=== PATIENT | female | born 1935 | race Caucasian/White ===

== ENCOUNTER 2019-06-03 | Emergency (ER) | payer MEDICARE, BC ==
[~2019-06-03] MED LIST: ANTIVERT12.5 MG PO; CADUET5 MG/40 MG PO; CELEBREX200 MG OR; CELEBREX200 MG PO; CIPROFLOXACN500 MG PO; ENABLEX15 MG OR; FLONASE NASAL50 MCG; LORTAB 5 OR; LORTAB 5/3255 MG PO; LORTAB5 PO; MECLIZINE12.5 MG PO; MEDDOSEPAK PO; OMEPRAZOLE20 MG; OXYBUTYNIN CHLOR5 MG PO; OXYBUTYNIN5 M1 PO; PREDNISONE20 MG PO; PROAIR HFA IN; TORADOL PO; ULTRAM50 MG PO; ZOFRAN ODT4 MG PO
[2019-06-03 08:46] LABS: URINE BILIRUBIN - DIPSTICK NEGATIVE (NEGATIVE); URINE BLOOD DIPSTICK MODERATE (NEGATIVE); URINE COLOR YELLOW; URINE GLUCOSE - DIPSTICK NEGATIVE (NEGATIVE); URINE KETONE NEGATIVE (NEGATIVE); URINE LEUK ESTERASE LARGE (NEGATIVE); URINE NITRITE - DIPSTICK NEGATIVE (Negative); URINE PH 7.5 (4.5-8.0); URINE PROTEIN - DIPSTICK TRACE mg/dL (NEG-TRACE); URINE UROBILINOGEN - DIPSTICK 0.2 E.U./dL (0.2)
[2019-06-03 08:50] LABS: URINE BACTERIA MANY hpf
[2019-06-03 08:51] LABS: URINE WBC 20-50 WBC/hpf (0-5)
[2019-06-03 09:05] LABS: HEMATOCRIT 40.6 % (37.0-47.0); HEMOGLOBIN 13.2 g/dl (12.0-16.0); IMMATURE GRANULOCYTES 0.6 % (0.0-5.0); MEAN CELL VOLUME 92.1 fL CALC (80.0-100.0); MEAN CORPUSCULAR HGB 29.9 pG CALC (26.0-32.0); MEAN CORPUSCULAR HGB CONC 32.5 g/L CALC (32.0-36.0); NEUT# 13.15 thou/uL (2.00-7.15); RED BLOOD COUNT 4.41 mill/uL (4.20-5.60); RED CELL DISTRI WIDTH 12.7 % (11.5-15.5)
[2019-06-03 09:20] LABS: ALKALINE PHOSPHATASE 120 u/l (38-126); ANION GAP 14 (6-22 (CALC)); BUN 16 mg/dL (8-23); BUN/CREATININE RATIO 30 (12-20 (CALC)); CARBON DIOXIDE 23 mmol/l (22-30); CHLORIDE 106 mmol/l (95-108); CREATININE 0.5 mg/dL (0.5-1.0); GFR > 60 ML/MIN (>=60 (CALC)); GFR FOR AFR.AMER. > 60 ML/MIN (>=60 (CALC)); LIPASE 83 u/l (23-300); POTASSIUM 4.1 mmol/l (3.5-5.1); SGOT/AST 22 u/l (9-36); SODIUM 139 mmol/l (137-146); TOTAL PROTEIN 7.4 g/dL (6.3-8.2)
[2019-06-03 09:25] LABS: BILIRUBIN, TOTAL 1.2 mg/dL (0.0-1.4)
[2019-06-03] MEDS ORDERED: BACTRIM DS1 TAB PO (10:54)
== END 2019-06-03 11:15 | disposition home or self-care (01) ==
PROVIDERS: Emergency Medicine
DX: N39.0 Urinary tract infection, site not specified (principal); B96.4 Proteus (mirabilis) (morganii) as the cause of diseases classified elsewhere

== ENCOUNTER 2020-10-14 12:11 | Emergency (ER) | payer MEDICARE ==
[~2020-10-14] VITALS: Ht 165.1 cm; Wt 90.5 kg
[~2020-10-14 12:11] MED LIST changes: +BACTRIM DS1 TAB PO
[2020-10-14 13:11] LABS: HEMATOCRIT 39.1 % (37.0-47.0); HEMOGLOBIN 12.6 g/dl (12.0-16.0); IMMATURE GRANULOCYTES 1.4 % (0.0-5.0); MEAN CELL VOLUME 91.6 fL CALC (80.0-100.0); MEAN CORPUSCULAR HGB 29.5 pG CALC (26.0-32.0); MEAN CORPUSCULAR HGB CONC 32.2 g/dL CAL (32.0-36.0); NEUT# 19.6 thou/uL (2.00-7.15); RED BLOOD COUNT 4.27 mill/uL (4.20-5.60); RED CELL DISTRI WIDTH 13.5 % (11.5-15.5)
[2020-10-14 13:28] LABS: ALBUMIN 3.1 g/dL (3.2-5.0); ALKALINE PHOSPHATASE 113 u/l (38-126); AMYLASE < 30 u/l (30-110); ANION GAP 14 (6-22 (CALC)); BILIRUBIN, TOTAL 2.5 mg/dL (0.0-1.4); BUN 28 mg/dL (8-23); BUN/CREATININE RATIO 22 (12-20 (CALC)); CARBON DIOXIDE 21 mmol/l (22-30); CHLORIDE 102 mmol/l (95-108); CREATININE 1.3 mg/dL (0.5-1.0); GFR 39 ML/MIN (>=60 (CALC)); GFR FOR AFR.AMER. 47 ML/MIN (>=60 (CALC)); LIPASE 31 u/l (23-300); POTASSIUM 3.7 mmol/l (3.5-5.1); SGOT/AST 91 u/l (9-36); SODIUM 134 mmol/l (137-146); TOTAL PROTEIN 6.3 g/dL (6.3-8.2)
[2020-10-14 14:41] LABS: URINE BLOOD DIPSTICK MODERATE (NEGATIVE); URINE COLOR YELLOW; URINE GLUCOSE - DIPSTICK NEGATIVE (NEGATIVE); URINE KETONE 15 mg/dL (NEGATIVE); URINE LEUK ESTERASE NEGATIVE (NEGATIVE); URINE PH 5.5 (4.5-8.0); URINE PROTEIN - DIPSTICK 30 mg/dL (NEG-TRACE); URINE SPECIFIC GRAVITY 1.025
[2020-10-14 14:48] LABS: URINE BILIRUBIN - DIPSTICK SMALL (NEGATIVE)
[2020-10-14 14:49] LABS: URINE NITRITE - DIPSTICK NEGATIVE (Negative)
[2020-10-14 14:50] LABS: URINE SQUAMOUS EPITHELIAL CELL FEW EPI/hpf (0-FEW)
[2020-10-14 17:38] VITALS: BP 116/63
--- NOTE | 2020-10-16 08:00 | NUR ---
Preliminary blood culture results of 04/23 growing gram negative kareem called to [place] nurse at [facility]. Faxed to floor at [facility] at [phone].
--- NOTE | 2020-10-17 08:18 | NUR ---
FINAL BLOOD CX RESULTS CALLED TO TORRIE @ [facility] AND FAXED TO [phone]
== END 2020-10-14 17:39 | disposition short-term general hospital (02) ==
LOC: ED 12:11
DX: A41.9 Sepsis, unspecified organism (principal); N13.2 Hydronephrosis with renal and ureteral calculous obstruction; I48.91 Unspecified atrial fibrillation; Z20.822 Contact with and (suspected) exposure to COVID-19
CPT/HCPCS: J2060; Q9967

== ENCOUNTER 2020-10-30 14:48 | Emergency (ER) | payer MEDICARE ==
[~2020-10-30] VITALS: Ht 165.1 cm; Wt 125.0 kg
[2020-10-30] VITALS (10 sets, daily range): BP systolic 83–132; BP diastolic 50–61
[2020-10-30 15:45] LABS: URINE BILIRUBIN - DIPSTICK NEGATIVE (NEGATIVE); URINE BLOOD DIPSTICK LARGE (NEGATIVE); URINE COLOR YELLOW; URINE GLUCOSE - DIPSTICK NEGATIVE (NEGATIVE); URINE KETONE TRACE mg/dL (NEGATIVE); URINE PH 5.5 (4.5-8.0); URINE PROTEIN - DIPSTICK 30 mg/dL (NEG-TRACE); URINE SPECIFIC GRAVITY 1.025
[2020-10-30 15:46] LABS: IMMATURE GRANULOCYTES 1.9 % (0.0-5.0); MEAN CELL VOLUME 96.3 fL CALC (80.0-100.0); MEAN CORPUSCULAR HGB 29.8 pG CALC (26.0-32.0); NEUT# 22.67 thou/uL (2.00-7.15); RED BLOOD COUNT 1.91 mill/uL (4.20-5.60); RED CELL DISTRI WIDTH 14.7 % (11.5-15.5)
[2020-10-30 15:55] LABS: URINE LEUK ESTERASE MODERATE (NEGATIVE); URINE NITRITE - DIPSTICK NEGATIVE (Negative)
[2020-10-30 15:58] LABS: URINE SQUAMOUS EPITHELIAL CELL FEW EPI/hpf (0-FEW); URINE WBC 50-100 WBC/hpf (0-5)
[2020-10-30 16:01] LABS: CREATININE 1.1 mg/dL (0.5-1.0); HEMATOCRIT 18.4 % (37.0-47.0); HEMOGLOBIN 5.7 g/dl (12.0-16.0); TOTAL PROTEIN 5.1 g/dL (6.3-8.2)
[2020-10-30 16:14] LABS: ALBUMIN 2.3 g/dL (3.2-5.0); BILIRUBIN, TOTAL 0.4 mg/dL (0.0-1.4); POTASSIUM 4.8 mmol/l (3.5-5.1)
[2020-10-30 16:27] LABS: INTERNATIONAL NORMALIZED RATIO 1.6 RATIO (0.7-1.3); PROTHROMBIN TIME 16.6 SECONDS (9.0-12.5)
== END 2020-10-30 18:40 | disposition short-term general hospital (02) ==
LOC: ED 14:48
PROVIDERS: Emergency Medicine
PROC: 30233N1 Transfusion of Nonautologous Red Blood Cells into Peripheral Vein, Percutaneous Approach (ICD-10-PCS; principal; 2020-10-30)
PROC: 30233N1 Transfusion of Nonautologous Red Blood Cells into Peripheral Vein, Percutaneous Approach (ICD-10-PCS; 2020-10-30)
PROC: 30233N1 Transfusion of Nonautologous Red Blood Cells into Peripheral Vein, Percutaneous Approach (ICD-10-PCS; 2020-10-30)
DX: A41.9 Sepsis, unspecified organism (principal); K62.5 Hemorrhage of anus and rectum; D50.0 Iron deficiency anemia secondary to blood loss (chronic); I95.9 Hypotension, unspecified; N39.0 Urinary tract infection, site not specified; I11.0 Hypertensive heart disease with heart failure; I50.9 Heart failure, unspecified; I48.91 Unspecified atrial fibrillation; E66.01 Morbid (severe) obesity due to excess calories; Z20.822 Contact with and (suspected) exposure to COVID-19
CPT/HCPCS: P9016; S0164

== ENCOUNTER 2020-12-17 23:07 | Emergency (ER) | payer MEDICARE ==
[~2020-12-17] VITALS: Ht 165.1 cm; Wt 77.2 kg
[2020-12-18] MEDS ORDERED: ELIQUIS5 MG PO (01:10)
[2020-12-18] MEDS ORDERED: METOPROL TAR25 MG PO (01:10)
[2020-12-18] MEDS ORDERED: PROTONIX40 M2 PO (01:11)
[2020-12-18 02:03] VITALS: BP 127/71
== END 2020-12-18 02:03 | disposition short-term general hospital (02) ==
LOC: ED 23:07
PROC: 0HQ1XZZ Repair Face Skin, External Approach (ICD-10-PCS; principal; 2020-12-17)
DX: S06.5X0A Traumatic subdural hemorrhage without loss of consciousness, initial encounter (principal); S01.81XA Laceration without foreign body of other part of head, initial encounter; S80.212A Abrasion, left knee, initial encounter; S80.211A Abrasion, right knee, initial encounter; I11.0 Hypertensive heart disease with heart failure; I50.9 Heart failure, unspecified; I48.91 Unspecified atrial fibrillation; E66.01 Morbid (severe) obesity due to excess calories; W18.30XA Fall on same level, unspecified, initial encounter; Y92.121 Bathroom in nursing home as the place of occurrence of the external cause; Z79.01 Long term (current) use of anticoagulants